=== PATIENT | male | born 1995 | race Caucasian/White ===

== ENCOUNTER 2016-11-06 13:01 | Emergency (ER) | payer OTHER ==
[~2016-11-06] VITALS: Ht 185.4 cm; Wt 79.4 kg
[2016-11-06] MEDS ORDERED: ADDERALL 20 MG20 M1 PO (13:59)
[2016-11-06] MEDS ORDERED: AUGMENTIN 875875 MG PO (14:00)
[2016-11-06] MEDS ORDERED: NORCO 5-325 TA1 EACH PO (15:37)
[2016-11-06] MEDS ORDERED: KEFLEX500 MG PO (16:15)
[2016-11-06 17:13] VITALS: BP 142/81
== END 2016-11-06 17:15 | disposition home or self-care (01) ==
LOC: ER 13:01
DX: S62.522B Displaced fracture of distal phalanx of left thumb, initial encounter for open fracture (principal); W45.8XXA Other foreign body or object entering through skin, initial encounter; Y93.89 Activity, other specified; Y92.89 Other specified places as the place of occurrence of the external cause; Y99.8 Other external cause status